=== PATIENT | female | born 1955 | race Caucasian/White ===

== ENCOUNTER 2017-08-22 06:53 | Day surgery (SDC) | payer BC ==
--- NOTE | 2017-08-21 13:20 | PCM.PREANE ---
Preanesthetic Assessment - Anesthesia/Transfusion/Family Hx Anesthesia History: Prior Anesthesia Without Reaction Family History of Anesthesia Reaction: No Transfusion History: No Prior Transfusion(s) Intubation History: Unknown - Review of Systems General: No Symptoms Pulmonary: No Symptoms Cardiovascular: No Symptoms (History of systolic ejection murmur) Gastrointestinal: No Symptoms Neurological: No Symptoms Other: Reports: Easy Bruising, Sinus Problem (Allergic rhinits-seasonal) - Physical Assessment NPO Status Date: 08/21/17 NPO Status Time: 21:30 Pulse: 59 O2 Sat by Pulse Oximetry: 98 Respiratory Rate: 16 Blood Pressure: 111/68 Temperature: 36.0 C Height: 1.57 m Weight: 55 kg ASA Class: 1 Mental Status: Alert & Oriented x3 Airway Class: Mallampati = 2 Dentition: Reports: Normal Dentition, Caries Thyro-Mental Finger Breadths: 3 Mouth Opening Finger Breadths: 3 ROM/Head Extension: Full Lungs: Clear to Auscultation, Normal Respiratory Effort Cardiovascular: Regular Rate, Regular Rhythm, No Murmurs - Lab Values: Laboratory Last Values WBC 7.62 K/mm3 (3.98-10.04) 08/16/17 12:34 RBC 5.44 M/mm3 (3.98-5.22) H 08/16/17 12:34 Hgb 16.3 gm/L (11.2-15.7) H 08/16/17 12:34 Hct 48.5 % (34.1-44.9) H 08/16/17 12:34 MCV 89.2 fl (79.4-94.8) 08/16/17 12:34 MCH 30.0 pg (25.6-32.2) 08/16/17 12:34 MCHC 33.6 g/dl (32.2-35.5) 08/16/17 12:34 RDW Std Deviation 42.9 fL (36.4-46.3) 08/16/17 12:34 Plt Count 159 K/mm3 (182-369) L 08/16/17 12:34 MPV 10.3 fl (9.4-12.3) 08/16/17 12:34 Neut % (Auto) 65.9 % (34.0-71.1) 08/16/17 12:34 Lymph % (Auto) 22.8 % (19.3-51.7) 08/16/17 12:34 [place] % (Auto) 9.6 % (4.7-12.5) 08/16/17 12:34 Eos % (Auto) 1.3 (0.7-5.8) 08/16/17 12:34 Baso % (Auto) 0.3 % (0.1-1.2) 08/16/17 12:34 Neut # (Auto) 5.02 K/mm3 (1.56-6.13) 08/16/17 12:34 Lymph # (Auto) 1.74 K/mm3 (1.18-3.74) 08/16/17 12:34 [place]ern # (Auto) 0.73 K/mm3 (0.24-0.36) H 08/16/17 12:34 Eos # (Auto) 0.10 K/mm3 (0.04-0.36) 08/16/17 12:34 Baso # (Auto) 0.02 K/mm3 (0.01-0.08) 08/16/17 12:34 Creatinine 1.0 mg/dL (0.55-1.02) 08/16/17 12:34 Est Cr Clr Drug Dosing TNP 08/16/17 12:34 Estimated GFR (MDRD) 56 mL/min (>60) 08/16/17 12:34 Urine Color Light yellow (Yellow) 08/16/17 12:34 Urine Appearance Clear (Clear) 08/16/17 12:34 Urine pH 7.0 (5.0-8.0) 08/16/17 12:34 Ur Specific [place] 1.015 (1.005-1.030) 08/16/17 12:34 Urine Protein Negative (Negative) 08/16/17 12:34 Urine Glucose (UA) Negative (Negative) 08/16/17 12:34 Urine Ketones Negative (Negative) 08/16/17 12:34 Urine Occult Blood Negative (Negative) 08/16/17 12:34 Urine Nitrite Negative (Negative) 08/16/17 12:34 Urine Bilirubin Negative (Negative) 08/16/17 12:34 Urine Urobilinogen 0.2 (0.2-1.0) 08/16/17 12:34 Ur Leukocyte Esterase Negative (Negative) 08/16/17 12:34 Above labs reviewed and noted and within acceptable ranges to proceed with scheduled procedure. - Imaging/EKG Impressions: EKG:SR rate= 54, consider right atrial enlargement - Allergies Allergies/Adverse Reactions: Allergies Allergy/AdvReac Type Severity Reaction Status Date / Time No Known Allergies Allergy Verified 08/21/17 15:17 - Anesthesia Plan Pre-Op Medication Ordered: None - Acknowledgements Anesthesia Type Planned: General Anesthesia Pt an Appropriate Candidate for the Planned Anesthesia: Yes Alternatives and Risks of Anesthesia Discussed w Pt/Guardian: Yes Pt/Guardian Understands and Agrees with Anesthesia Plan: Yes PreAnesthesia Questionnaire HEENT History: Reports: Allergic Rhinitis Cardiovascular History: Reports: Heart Murmur 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: Other (See Below) Other OB/BYN History: cystocele, rectocele, vaginal vault prolapse, cervix cryosurgery Musculoskeletal History: Reports: Osteoporosis - Past Surgical History HEENT Surgical History: Reports: Cataract Surgery Female Surgical History: Reports: Breast Biopsy, Hysterectomy - SUBSTANCE USE Smoking Status *Q: Never Smoker Tobacco Use Within Last Twelve Months: No Second Hand Smoke Exposure: Yes Days Per Week of Alcohol Use: 0 Number of Drinks Per Day: 0 Total Drinks Per Week: 0 Recreational Drug Use History: No - HOME MEDS Home Medications: Home Meds Calcium Carbonate [Calcium] 2 tab PO DAILY 06/21/16 [History] Cholecalciferol (Vitamin D3) [Vitamin D3] 1 tab PO DAILY 06/21/16 [History] Denosumab [Prolia] 60 mg SUBCUT ASDIRECTED 06/21/16 [History] Estradiol Micronized 1 cap VAG ASDIRECTED 06/21/16 [History] Lutein/Minerals/Vit A,C & E [Ocuvite] 1 tab PO DAILY 06/21/16 [History] - CURRENT (IN HOUSE) MEDS Current Meds: Current Medications Lactated Ringer's (Ringers, Lactated) 1,000 mls @ 125 mls/hr IV ASDIRECTED ROHINI Stop: 08/22/17 23:00 Lidocaine/Sodium Bicarbonate (Buffered Lidocaine 1% In Ns 8.4%) 0.25 ml IDERM ONETIME PRN PRN Reason: Prior to IV Start Stop: 08/22/17 18:00 Sodium Chloride (Saline Flush) 10 ml FLUSH ASDIRECTED PRN PRN Reason: Keep Vein Open Stop: 08/22/17 18:00
[2017-08-22] MEDS ORDERED: Lidocaine 1%/Sod Bicarbonate in NS 8.4% 1 ML Syringe IDERM PRN (07:00)
[2017-08-22] MEDS ORDERED: Sodium Chloride 0.9% 10 ML Syringe FLUSH PRN (07:00)
[2017-08-22] MEDS ORDERED: Ketorolac 30 MG/ML SDV ONE (07:20)
[2017-08-22] MEDS ORDERED: Lidocaine 1% 4 ML ONE (07:20)
[2017-08-22] MEDS ORDERED: Ondansetron 4 MG/2 ML SDV ONE (07:20)
[2017-08-22] MEDS ORDERED: Propofol 200 MG/20 ML SDV ONE (07:20)
[2017-08-22] MEDS: Lactated Ringers 1,000 ML IV SCH ×2 (07:20→09:59)
[2017-08-22] MEDS ORDERED: ceFAZolin 1 GM Vial ONE (07:20)
[2017-08-22] MEDS ORDERED: Rocuronium 50 MG/5 ML Vial ONE (07:20)
[2017-08-22] MEDS ORDERED: Midazolam 1 MG/ML 2 ML SDV ONE (07:20)
[2017-08-22] MEDS ORDERED: Lactated Ringers 1,000 ML ONE (07:20)
[2017-08-22] MEDS ORDERED: Dexamethasone 4 MG/ML 5 ML MDV ONE (07:20)
[2017-08-22] MEDS ORDERED: HYDROmorphone 0.5 MG/0.5 ML Syringe ONE (07:20)
[2017-08-22] MEDS ORDERED: fentaNYL 250 MCG/5 ML SDV ONE (07:21)
[2017-08-22] MEDS ORDERED: Sodium Chloride 0.9% 50 ML SDV ONE (07:25)
[2017-08-22] MEDS ORDERED: Lidocaine 1% with EPINEPHrine 1:100,000 20 ML MDV ONE (07:25)
[2017-08-22] MEDS ORDERED: Phenylephrine 1% 10 MG/ML SDV ONE (08:11)
[2017-08-22] MEDS ORDERED: Ondansetron 4 MG/2 ML SDV IVPUSH PRN ×2 (08:25→09:17)
[2017-08-22] MEDS ORDERED: diphenhydrAMINE 50 MG/ML SDV IVPUSH PRN (08:25)
[2017-08-22] MEDS ORDERED: ePHEDrine 50 MG/ML SDV IVPUSH PRN (08:25)
[2017-08-22] MEDS ORDERED: fentaNYL 100 MCG/2 ML SDV IVPUSH PRN (08:25)
[2017-08-22] MEDS ORDERED: HYDROmorphone 0.5 MG/0.5 ML SYRINGE IVPUSH PRN (08:26)
[2017-08-22] MEDS ORDERED: Phenylephrine 1 MG in Sodium Chloride 0.9% 10 ML IV SCH (08:30)
[2017-08-22] MEDS ORDERED: ePHEDrine 50 MG/ML SDV ONE (08:34)
[2017-08-22] MEDS ORDERED: Neostigmine Methylsulfate 10 MG/10 ML MDV ONE (08:35)
[2017-08-22] MEDS ORDERED: Glycopyrrolate 0.2 MG/ML SDV ONE ×5 (08:35)
[2017-08-22] MEDS ORDERED: Acetaminophen/oxyCODONE 325-5 MG Tab PO PRN (09:17)
--- NOTE | 2017-08-22 09:23 | PCM.OPNOTE ---
- General Post-Op/Procedure Note Date of Surgery/Procedure: 08/22/17 Operative Procedure(s): Anterior and posterior vaginal repair perineoplasty Findings: Grade 2 cystocele, grade 3-4 rectocele with prolapse at least 2 centers beyond the introitus, grade 1 vaginal cuff descensus Pre Op Diagnosis: 1. Grade 2 cystocele. 2. Grade 3-4 rectocele. 3. Grade 1 vaginal cuff descensus Post-Op Diagnosis: Same Anesthesia Technique: General ET Tube Other Anesthesia Type: Lidocaine 1% with epinephrineapproximate 20 mL total Primary Surgeon: Wayne Mendenhall Secondary Surgeon: Valerio Conte Anesthesia Provider: Celeste Yao Sewing Machine Operator Zipper: Dewayne Saenz Reason Sewing Machine Operator Zipper Was Necessary: Retraction, assistance, care, patient safety Role of Sewing Machine Operator Zipper: Retraction, assistance Fluid Replacement, Intraop: 1,200 EBL in mLs: 10 Complications: None Condition: Good Free Text/Narrative:: Surgery duration: 45 minutes Procedure: The patient is taken to the operating room and placed in a supine position on the operating table. She received 2 g of Ancef preoperatively for infection prophylaxis. She had sequential compression stockings in place for DVT prophylaxis. Patient was administered general endotracheal anesthesia. She was placed in a dorsal lithotomy position and prepped and draped in the usual fashion. Anterior vaginal repair was performed. 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 Weighted speculum was placed in the vagina and the uppermost portion of the cystocele was identified. Two Allis clamps was placed at that uppermost point at a position approximately 1-1/2 cm lateral to the midline A second Allis clamp was placed approximately 2 cm from the urethral meatus. The areas and infiltrated with lidocaine quarter percent with epinephrine. Approximately 8 mL was used. The 2 lateral Allis clamps were retracted and an epithelial incision was made between the 2 clamps. A midline incision was then made with a Metzenbaum scissors. The overlying epithelium was then dissected off of the underlying vesicovaginal fascia. This all to lateral which when approximately midline was felt to be adequate to reduce the cystocele. When this was done approximately 4 trapezoidal shaped sutures of 0 Monocryl were then placed reapproximating the lateral supportive tissue midline and reducing the rectocele. At this point the excess epithelium bilaterally was removed and the epithelium was closed in a running fashion with 2 short segments to decrease likelihood of shortening of the vagina. Rectocele was then performed. Rectoceles very large rectocele extending at least 2 cm outside the vaginal introitus. The uppermost portion of the rectocele was identified and was grasped midline with an Allis clamp. The introital area was grasped at approximately the 4:00 and 8:00 positions at the junction of the vaginal and vulvar epithelium. The area of epithelium was then infiltrated with lidocaine quarter percent with epinephrine. A markel-shaped piece of epithelium was removed from the posterior introital and perineal area. The vaginal epithelium was then undermined superiorly to the top of the rectocele. Was then incised midline. With sharp and blunt dissection the epithelium was then dissected off of the underlying vesicovaginal fascia. At this point approximately 10 sutures of 0 Monocryl were placed to reapproximate the lateral supportive tissue midline and reduce the rectocele. The excess epithelium was then excised and the epithelium overlying the rectocele repair was then reapproximated with a running suture of 3-0 Monocryl. Perineoplasty was then performed with approximately 4 V-shaped stitches of 0 Monocryl in placed to reapproximate the lateral tissue midline, rebuild the perineum about 1 cm and the vagina approximately 1 cm. The epithelium of the introitus and perineal body was then reapproximated using 3-0 Monocryl in an episiotomy repair fashion. During the course of procedure an attempt was made to maintain her to fair breath caliber to the vagina and a full phalanx depth to the vagina for sexual function reasons. At this time sponge, instrument and needle counts were correct. The patient was returned to supine position and was discharged from the operating room in good condition.
--- NOTE | 2017-08-22 09:36 | PCM.POSTAN ---
POST ANESTHESIA ASSESSMENT - MENTAL STATUS Mental Status: Alert - VITAL SIGNS Pulse Rate: 77 SaO2: 97 (on 2LPM nasal cannula) Resp Rate: 12 Blood Pressure: 92/42 Temperature: 36.2 C - RESPIRATORY Respiratory Status: Respiratory Rate WNL, Airway Patent, O2 Saturation Stable, Supplemental Oxygen - CARDIOVASCULAR CV Status: Pulse Rate WNL, Blood Pressure Stable - GASTROINTESTINAL GI Status: No Symptoms - POST OP HYDRATION Hydration Status: Adequate & Stable
--- NOTE | 2017-08-22 11:23 | PCM48HPAN ---
Post Anesthesia Note - EVALUATION WITHIN 48HRS OF ANESTHETIC Vital Signs in Normal Range: Yes Patient Participated in Evaluation: Yes Respiratory Function Stable: Yes Airway Patent: Yes Cardiovascular Function Stable: Yes Hydration Status Stable: Yes Pain Control Satisfactory: Yes Nausea and Vomiting Control Satisfactory: Yes Mental Status Recovered: Yes
[2017-08-22 13:51] VITALS: BP 116/68
== END 2017-08-22 12:40 | disposition home or self-care (01) ==
LOC: JD.SDS 06:53
PROVIDERS: ATTEND Obstetrics & Gynecology
DX: N81.9 Female genital prolapse, unspecified (principal); N81.10 Cystocele, unspecified; N81.6 Rectocele; J30.9 Allergic rhinitis, unspecified; M81.0 Age-related osteoporosis without current pathological fracture; Z79.899 Other long term (current) drug therapy; Z90.49 Acquired absence of other specified parts of digestive tract; Z90.710 Acquired absence of both cervix and uterus
CPT/HCPCS: 36415; 57260; 81003; 82565; 85025; J0690; J1100; J1170; J1885; J2250; J2370; J2405; J2710; J3010; J3490; J7120; 00942; J2001; J2704

== ENCOUNTER 2021-07-20 08:02 | Day surgery (SDC) | payer MEDICARE, BC ==
[~2021-07-20 08:02] MED LIST: Lidocaine 1% 4 ML ONE; Propofol 200 MG/20 ML SDV ONE
[2021-07-20] MEDS ORDERED: Sodium Chloride 0.9% 10 ML Syringe FLUSH PRN (08:14)
[2021-07-20] MEDS ORDERED: Lidocaine 1%/Sod Bicarbonate in NS 8.4% 1 ML Syringe IDERM PRN (08:14)
[2021-07-20] MEDS ORDERED: Lactated Ringers 1,000 ML IV SCH (08:15)
[2021-07-20] MEDS ORDERED: Sodium Chloride 0.9% 10 ML Syringe FLUSH SCH (09:00)
[2021-07-20 10:48] VITALS: BP 118/76; PULSE 78
== END 2021-07-20 10:45 | disposition home or self-care (01) ==
LOC: JD.SDS 08:02
PROVIDERS: ATTEND Surgery
DX: Z12.11 Encounter for screening for malignant neoplasm of colon (principal); K62.1 Rectal polyp; K64.8 Other hemorrhoids; K62.6 Ulcer of anus and rectum; E78.5 Hyperlipidemia, unspecified; M81.0 Age-related osteoporosis without current pathological fracture; Z90.49 Acquired absence of other specified parts of digestive tract; Z98.890 Other specified postprocedural states; Z90.711 Acquired absence of uterus with remaining cervical stump; Z79.899 Other long term (current) drug therapy; Z80.0 Family history of malignant neoplasm of digestive organs
CPT/HCPCS: 45380; J2704; J7120; 00812; 88305